=== PATIENT | male | born 1995 | race Caucasian/White ===

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

== ENCOUNTER 2017-05-04 08:00 | Outpatient (CLI) | payer MEDICAID ==
[2017-05-04 17:45] LABS: BASOPHILS % (AUTO) 0.5 %; EOSINOPHILS # (AUTO) 0.1 10^3/uL (0.0-0.7); EOSINOPHILS % (AUTO) 0.8 %; HCT - HEMATOCRIT 46.6 % (42.0-52.0); HGB - HEMOGLOBIN 15.8 g/dL (14.0-18.0); LYMPHOCYTES # (AUTO) 1.9 10^3/uL (1.5-3.5); LYMPHOCYTES % (AUTO) 27.1 %; MEAN CORPUSCULAR HEMOGLOBIN 31.3 pg (27.0-31.0); MEAN CORPUSCULAR HGB CONC 33.8 g/dL (32.0-36.0); MEAN CORPUSCULAR VOLUME 92.5 fL (80.0-94.0); MEAN PLATELET VOLUME 7.5 fL (7.4-11.4); MONOCYTES # (AUTO) 0.5 10^3/uL (0.0-1.0); MONOCYTES % (AUTO) 6.7 %; NEUTROPHILS # (AUTO) 4.6 10^3/uL (1.5-6.6); NEUTROPHILS % (AUTO) 64.9 %; RED BLOOD COUNT 5.04 10^6/uL (4.70-6.10); RED CELL DISTRIBUTION WIDTH 13.8 % (12.0-15.0); UNCORRECTED WHITE BLOOD COUNT 7.1 x10^3/uL; WHITE BLOOD COUNT 7.1 x10^3/uL (4.8-10.8)
[2017-05-04 18:24] LABS: ALBUMIN/GLOBULIN RATIO 1.5 (1.0-2.2); BILIRUBIN,TOTAL 0.4 mg/dL (0.2-1.0); BUN - BLOOD UREA NITROGEN 13 mg/dL (6-20); CARBON DIOXIDE - CO2 26 mmol/L (21-32); CHLORIDE 97 mmol/L (101-111); CHOL/HDL RATIO 5.2 (<5.0); CHOLESTEROL 222 mg/dL; CREATININE 0.9 mg/dL (0.6-1.2); GFR - MDRD 108 (>89); GLUCOSE 92 mg/dL (70-100); HDL CHOLESTEROL 43 mg/dL; POTASSIUM 4.2 mmol/L (3.5-5.0); SODIUM 132 mmol/L (135-145); TOTAL PROTEIN 7.3 g/dL (6.7-8.2); TRIGLYCERIDES 252 mg/dL; VLDL CHOLESTEROL 50 mg/dL
[2017-05-04 18:26] LABS: THYROID STIMULATING HORMONE 3.07 uIU/mL (0.34-5.60)
[2017-05-04 18:55] LABS: HEMOGLOBIN A1C 0.52 g/dL
== END 2017-05-04 08:01 | disposition home or self-care (01) ==
LOC: LAB.R 08:00
PROVIDERS: ATTEND Pediatrics
DX: Q90.9 Down syndrome, unspecified (principal); E03.9 Hypothyroidism, unspecified
CPT/HCPCS: 80053; 80061; 83036; 84439; 84443; 85025

== ENCOUNTER 2017-12-08 14:56 | Outpatient (CLI) | payer MEDICAID ==
[2017-12-08 19:09] LABS: THYROID STIMULATING HORMONE 1.42 uIU/mL (0.34-5.60)
[2017-12-08 19:11] LABS: FREE T4 (FREE THYROXINE) 0.66 ng/dL (0.58-1.64)
== END 2017-12-08 14:57 | disposition home or self-care (01) ==
LOC: LAB.F 14:56
PROVIDERS: ATTEND Nurse Practitioner Family
DX: Z79.899 Other long term (current) drug therapy (principal); E03.9 Hypothyroidism, unspecified
CPT/HCPCS: 36415; 80175; 80183; 81599; 84439; 84443

== ENCOUNTER 2020-03-12 15:41 | Outpatient (CLI) | payer MEDICAID ==
[2020-03-12 19:54] LABS: BASOPHILS # (AUTO) 0.1 10^3/uL (0.0-0.1); BASOPHILS % (AUTO) 0.7 %; EOSINOPHILS # (AUTO) 0.1 10^3/uL (0.0-0.7); EOSINOPHILS % (AUTO) 1.5 %; LYMPHOCYTES # (AUTO) 2.5 10^3/uL (1.5-3.5); LYMPHOCYTES % (AUTO) 33.3 %; MEAN CORPUSCULAR HEMOGLOBIN 31.6 pg (27.0-31.0); MEAN CORPUSCULAR HGB CONC 33.7 g/dL (32.0-36.0); MEAN CORPUSCULAR VOLUME 93.7 fL (80.0-94.0); MEAN PLATELET VOLUME 9.8 fL (7.4-11.4); MONOCYTES # (AUTO) 0.5 10^3/uL (0.0-1.0); NEUTROPHILS # (AUTO) 4.3 10^3/uL (1.5-6.6); NEUTROPHILS % (AUTO) 56.7 %; PLT - PLATELET COUNT 358 10^3/uL (130-450); RED BLOOD COUNT 5.07 10^6/uL (4.70-6.10); RED CELL DISTRIBUTION WIDTH 13.9 % (12.0-15.0); WHITE BLOOD COUNT 7.5 x10^3/uL (4.8-10.8)
[2020-03-12 20:12] LABS: ALBUMIN 4.3 g/dL (3.2-5.5); ALBUMIN/GLOBULIN RATIO 1.3 (1.0-2.2); BILIRUBIN,TOTAL 0.4 mg/dL (0.2-1.0); CALCIUM 9.6 mg/dL (8.5-10.3); TOTAL PROTEIN 7.7 g/dL (6.7-8.2)
[2020-03-12 20:28] LABS: THYROID STIMULATING HORMONE < 0.08 uIU/mL (0.34-5.60)
[2020-03-12 20:30] LABS: FREE T4 (FREE THYROXINE) 1.21 ng/dL (0.58-1.64)
== END 2020-03-12 15:42 | disposition home or self-care (01) ==
LOC: LAB.S 15:41
PROVIDERS: ATTEND Registered Nurse
DX: E66.9 Obesity, unspecified (principal); G47.33 Obstructive sleep apnea (adult) (pediatric); Q90.9 Down syndrome, unspecified; E03.9 Hypothyroidism, unspecified; I10 Essential (primary) hypertension
CPT/HCPCS: 36415; 80053; 80175; 81599; 84439; 84443; 85025

== ENCOUNTER 2021-05-23 09:34 | Outpatient (CLI) | payer MEDICAID ==
[2021-05-23 15:12] LABS: BASOPHILS # (AUTO) 0.1 10^3/uL (0.0-0.1); BASOPHILS % (AUTO) 0.8 %; EOSINOPHILS # (AUTO) 0.1 10^3/uL (0.0-0.7); EOSINOPHILS % (AUTO) 1.3 %; HCT - HEMATOCRIT 48.7 % (42.0-52.0); HGB - HEMOGLOBIN 16.5 g/dL (14.0-18.0); LYMPHOCYTES # (AUTO) 1.6 10^3/uL (1.5-3.5); LYMPHOCYTES % (AUTO) 24.4 %; MEAN CORPUSCULAR HEMOGLOBIN 31.7 pg (27.0-31.0); MEAN CORPUSCULAR HGB CONC 33.9 g/dL (32.0-36.0); MEAN CORPUSCULAR VOLUME 93.7 fL (80.0-94.0); MEAN PLATELET VOLUME 9.9 fL (7.4-11.4); MONOCYTES # (AUTO) 0.6 10^3/uL (0.0-1.0); MONOCYTES % (AUTO) 8.7 %; NEUTROPHILS # (AUTO) 4.1 10^3/uL (1.5-6.6); NEUTROPHILS % (AUTO) 64.3 %; PLT - PLATELET COUNT 301 10^3/uL (130-450); RED CELL DISTRIBUTION WIDTH 13.6 % (12.0-15.0); WHITE BLOOD COUNT 6.4 x10^3/uL (4.8-10.8)
[2021-05-23 15:30] LABS: ALBUMIN 4.2 g/dL (3.2-5.5); ALBUMIN/GLOBULIN RATIO 1.3 (1.0-2.2); BILIRUBIN,TOTAL 0.9 mg/dL (0.2-1.0); CALCIUM 9.2 mg/dL (8.5-10.3); CREATININE 0.9 mg/dL (0.6-1.2); POTASSIUM 4.2 mmol/L (3.5-5.0); TOTAL PROTEIN 7.4 g/dL (6.7-8.2)
[2021-05-23 17:03] LABS: THYROID STIMULATING HORMONE 0.01 uIU/mL (0.34-5.60)
[2021-05-23 17:34] LABS: FREE T4 (FREE THYROXINE) 1.75 ng/dL (0.58-1.64)
== END 2021-05-23 09:35 | disposition home or self-care (01) ==
LOC: LAB.S 09:34
PROVIDERS: ATTEND Registered Nurse
DX: I10 Essential (primary) hypertension (principal); E03.9 Hypothyroidism, unspecified
CPT/HCPCS: 36415; 80053; 80175; 84439; 84443; 85025

== ENCOUNTER 2021-06-22 15:26 | Outpatient (CLI) | payer MEDICAID ==
[2021-06-25 10:47] LABS: IMMUNOGLOBULIN A 265 mg/dL (47-310); IMMUNOGLOBULIN G 974 mg/dL (600-1640); IMMUNOGLOBULIN M 68 mg/dL (50-300)
== END 2021-06-22 15:27 | disposition home or self-care (01) ==
LOC: LAB.S 15:26
PROVIDERS: ATTEND Registered Nurse
DX: Q90.9 Down syndrome, unspecified (principal)
CPT/HCPCS: 82784; 83516

== ENCOUNTER 2022-01-11 14:41 | Emergency (ER) | payer MEDICAID ==
--- NOTE | 2022-01-11 15:57 | XRAY Report ---
PROCEDURE: Knee 4 View RT INDICATIONS: Trauma TECHNIQUE: 4 views of the right knee(s) were acquired. COMPARISON: None. FINDINGS: Bones: No fractures or dislocations. No suspicious bony lesions. Soft tissues: No joint effusion. No suspicious soft tissue calcifications. IMPRESSION: Normal right knee radiographs Reviewed by: Gerald Gongora MD on 01/11/2022 2:56 PM AKDT Approved by: Gerald Gongora MD on 01/11/2022 2:56 PM AKDT Station ID: [id number]
--- NOTE | 2022-01-11 15:58 | ED Physician Documentation ---
PD HPI LOWER EXT INJURY - Stated complaint Stated Complaint: FALL,KNEE PX - Chief complaint Chief Complaint: Trauma Ext - History obtained from History obtained from: Patient - History of Present Illness PD HPI LOW EXT INJURY LOCATION: Right, Knee Type of injury: Fall Where injury occurred: Park Timing - onset: How many days ago (2-3) Timing - duration: Days (2-3) Pain level max: 5 Pain level now: 3 Improved by: Rest Worsened by: Moving, Palpating Associated symptoms: No: Weakness, Numbness, Tingling, Swelling Contributing factors: No: Anticoagulated - Additional information Additional information: Patient is a 26-year-old male with a history of Down syndrome who presents to the emergency department with right knee pain after a fall at the park. This occurred 2 to 3 days ago. Worse with walking, better with rest. Review of Systems Constitutional: denies: Fever, Chills Respiratory: denies: Cough GI: denies: Nausea, Vomiting, Diarrhea Skin: denies: Rash Musculoskeletal: denies: Neck pain, Back pain Neurologic: denies: Headache PD PAST MEDICAL HISTORY - Past Medical History Past Medical History: Yes Other Past Medical History: Down syndrome - Past Surgical History Past Surgical History: No - Present Medications Home Medications: Ambulatory Orders Medication Instructions Recorded Confirmed Levothyroxine Sodium [Levoxyl] 175 mcg PO DAILY 04/25/13 01/01/15 Azithromycin [Zithromax] 250 mg PO DAILY #4 tablet 01/01/15 OXcarbazepine [Trileptal] 900 mg PO BID 01/01/15 01/01/15 - Allergies Allergies/Adverse Reactions: Allergies Allergy/AdvReac Type Severity Reaction Status Date / Time No Known Drug Allergies Allergy Verified 01/11/22 14:51 - Living Situation Living Situation: reports: With family Living Arrangement: reports: At home - Social History Does the pt smoke?: No Smoking Status: Never smoker Does the pt drink ETOH?: No Does the pt have substance abuse?: No - Immunizations Immunizations are current?: Yes - POLST Patient has POLST: No PD ED PE NORMAL - Vitals Vital signs reviewed: Yes - General General: Alert and oriented X 3, No acute distress - Derm Derm: Warm and dry - Extremities Extremities: Other (Full range of motion of the right knee without pain. No bony tenderness. No effusion.) - Neuro Neuro: Alert and oriented X 3 - Psych Psych: Normal mood, Normal affect Results - Vitals Vitals: Vital Signs - 24 hr 01/11/22 01/11/22 14:51 16:25 Temperature 36.5 C 36.5 C Heart Rate 84 86 Respiratory 16 16 Rate Blood Pressure 117/52 L 118/60 O2 Saturation 96 98 Oxygen O2 Source Room air - Rads (name of study) Right knee x-ray Radiology: Final report received, EMP read contemporaneously, See rad report PD MEDICAL DECISION MAKING - ED course Complexity details: reviewed results, re-evaluated patient, considered differential, d/w patient, d/w family ED course: No acute findings on x-ray of the knee. Appears to be a knee contusion/sprain. Wrapped in Nura bandage for comfort. Ambulating well. Will utilize Motrin and Tylenol as needed for pain. Neurovascular intact. Patient and family counseled regarding signs and symptoms for which I believe and urgent re-evaluation would be necessary. Patient with good understanding of and agreement to plan and is comfortable going home at this time This document was made in part using voice recognition software. While efforts are made to proofread this document, sound alike and grammatical errors may occur. Departure - Departure Disposition: 01 Home, Self Care Clinical Impression: Contusion of knee, right Qualifiers: Encounter type: initial encounter Qualified Code(s): S80.01XA - Contusion of right knee, initial encounter Condition: Good Instructions: ED Knee Pain UKO, ED Sprain Knee Follow-Up: Tegan Mckeon ARNP [Primary Care Provider] - Within 1 week Comments: Your x-ray does not show any acute abnormalities today. Please follow-up with your doctor as needed for further care. You can use the Nura bandage as needed for comfort. Motrin or Tylenol as needed for pain. Discharge Date/Time: 01/11/22 16:29
[2022-01-11 16:26] VITALS: BP 118/60
== END 2022-01-11 16:29 | disposition home or self-care (01) ==
LOC: ED 14:41
DX: S80.01XA Contusion of right knee, initial encounter (principal); W18.30XA Fall on same level, unspecified, initial encounter; Y92.830 Public park as the place of occurrence of the external cause
CPT/HCPCS: 99282; 99283

== ENCOUNTER 2022-03-24 16:10 | Outpatient (CLI) | payer MEDICAID | END 2022-03-24 16:11 | disposition EMS.NT | LOC: EMS 16:10 | DX: R56.9 Unspecified convulsions (principal) ==

== ENCOUNTER 2022-03-24 18:50 | Outpatient (CLI) | payer MEDICAID ==
--- NOTE | 2022-03-25 11:21 | XRAY Report ---
PROCEDURE: Finger(s) RT INDICATIONS: SPRAIN OF RIGHT THUMB TECHNIQUE: AP hand, 2 views of the right hand first digit acquired. COMPARISON: None. FINDINGS: Bones: Oblique linear lucency present at the base of the first digit distal phalanx, likely the ulnar aspect, without definite cortical disruption visualized. No suspicious bony lesions. Soft tissues: No suspicious soft tissue calcifications. IMPRESSION: A linear lucency at the base of the first digit distal phalanx could indicate an acute nondisplaced f racture, however no definite cortical disruption is identified. Correlation with point tenderness in this area may be helpful. If symptoms persist, follow-up radiographs and/or CT may be helpful for fur ther evaluation. Reviewed by: Arpan Mendenhall MD on 03/25/2022 11:20 AM PDT Approved by: Arpan Mendenhall MD on 03/25/2022 11:20 AM PDT Station ID: [id number]
== END 2022-03-24 18:51 | disposition home or self-care (01) ==
LOC: DI.S 18:50
PROVIDERS: ATTEND Emergency Medicine
DX: S63.621A Sprain of interphalangeal joint of right thumb, initial encounter (principal)

== ENCOUNTER 2022-04-30 14:19 | Outpatient (CLI) | payer MEDICAID ==
[2022-04-30 20:23] LABS: THYROID STIMULATING HORMONE 0.23 uIU/mL (0.34-5.60)
[2022-04-30 21:03] LABS: FREE T4 (FREE THYROXINE) 1.04 ng/dL (0.58-1.64)
== END 2022-04-30 14:20 | disposition home or self-care (01) ==
LOC: LAB.S 14:19
PROVIDERS: ATTEND Registered Nurse
DX: E03.9 Hypothyroidism, unspecified (principal)
CPT/HCPCS: 36415; 84439; 84443

== ENCOUNTER 2023-07-01 14:48 | Outpatient (CLI) | payer MEDICAID ==
[2023-07-01 19:47] LABS: BASOPHILS % (AUTO) 0.6 %; EOSINOPHILS # (AUTO) 0.1 10^3/uL (0.0-0.7); EOSINOPHILS % (AUTO) 1.3 %; HCT - HEMATOCRIT 46.9 % (42.0-52.0); HGB - HEMOGLOBIN 15.2 g/dL (14.0-18.0); LYMPHOCYTES # (AUTO) 1.6 10^3/uL (1.5-3.5); LYMPHOCYTES % (AUTO) 24.8 %; MEAN CORPUSCULAR HEMOGLOBIN 31.1 pg (27.0-31.0); MEAN CORPUSCULAR HGB CONC 32.4 g/dL (32.0-36.0); MEAN CORPUSCULAR VOLUME 96.1 fL (80.0-94.0); MEAN PLATELET VOLUME 9.7 fL (7.4-11.4); MONOCYTES # (AUTO) 0.4 10^3/uL (0.0-1.0); NEUTROPHILS # (AUTO) 4.2 10^3/uL (1.5-6.6); NEUTROPHILS % (AUTO) 66.5 %; PLT - PLATELET COUNT 324 10^3/uL (130-450); RED BLOOD COUNT 4.88 10^6/uL (4.70-6.10); RED CELL DISTRIBUTION WIDTH 13.4 % (12.0-15.0); WHITE BLOOD COUNT 6.3 x10^3/uL (4.8-10.8)
[2023-07-01 20:06] LABS: ALBUMIN 4.2 g/dL (3.2-5.5); ALBUMIN/GLOBULIN RATIO 1.6 (1.0-2.2); BILIRUBIN,TOTAL 0.3 mg/dL (0.2-1.0); CALCIUM 9.4 mg/dL (8.5-10.3); CREATININE 0.9 mg/dL (0.6-1.3); POTASSIUM 3.6 mmol/L (3.5-4.5); TOTAL PROTEIN 6.8 g/dL (6.4-8.9)
[2023-07-01 20:15] LABS: THYROID STIMULATING HORMONE 1.68 uIU/mL (0.34-5.60)
== END 2023-07-01 14:49 | disposition home or self-care (01) ==
LOC: LAB.S 14:48
PROVIDERS: ATTEND Registered Nurse
DX: E03.9 Hypothyroidism, unspecified (principal); Z79.899 Other long term (current) drug therapy
CPT/HCPCS: 36415; 80053; 84443; 85025

== ENCOUNTER 2023-09-26 12:59 | Outpatient (CLI) | payer MEDICAID | END 2023-09-26 13:00 | disposition home or self-care (01) | LOC: NS 12:59 | PROVIDERS: ATTEND Registered Nurse | DX: Z71.3 Dietary counseling and surveillance (principal); E03.9 Hypothyroidism, unspecified; R73.01 Impaired fasting glucose; E66.9 Obesity, unspecified; Z68.42 Body mass index [BMI] 45.0-49.9, adult | CPT/HCPCS: 97802 ==

== ENCOUNTER 2023-10-12 15:43 | Outpatient (CLI) | payer MEDICAID ==
--- NOTE | 2023-10-12 16:39 | Sleep Patient Instructions ---
Sleep Center Visit Summary - Patient Visit Information Reason for Visit: Initial consult for evaluation of sleep disordered breathing and other sleep issues. - Patient Instructions Instructions Attached: Sleep Study Home Monitor Additional Instructions: You will be completing a sleep study, either an in-lab polysomnography (PSG) or home sleep study (HST). You will follow-up in the sleep care office after the sleep study is completed to hear the results and talk about therapy, if needed. You will be called by our office staff to schedule this appointment, but you may contact us with any questions. - Clinic Information Contact: [facility] [address] [place] [address] [email or web address] T: [phone]
--- NOTE | 2023-10-12 16:43 | SLEEP CARE CONSULTATION ---
Information from patient questionnaire entered by Meredith Tapia. I have reviewed and concur with the information entered by Meredith Tapia. This document represents the service I personally performed and the decisions made by me, Eda Merrill ARNP. History of Present Illness Service Date and Time: 10/12/2023 1543 Reason for Visit: New patient Accompanied by: Jaylin Kang Chief Complaint: reports: Unrefreshed sleep, Snoring, Other (UPDATE SUPPLIES) Date of Onset: SINCE 18YEARS OLD Usual bedtime: 8653-8090 Time it takes to fall asleep: 30MINS Snores at night: Yes Observed to quit breathing while asleep: Yes Number of times waking at night: 1 Reasons for waking at night: reports: Bathroom. denies: Choking, Gasping for air Toss, Turn, or Twitch while sleeping: Yes Recalls having dreams: No Usually gets out of bed at: 1218-0737 Feels refreshed in the morning: No Morning headache: No Sleepy or fatigued during the day: Yes Takes day naps: Yes Dreams during day naps: No Prior sleep studies: Yes Additional HPI information: I had the pleasure of seeing ARNAV KATHLEENGERI today regarding the possibility of him having a sleep disorder. His current complaints are snoring and unrefreshed sleep. He is accompanied by his grandmother, Jaylin, because he has Downs Syndrome and she helps with history. He has had a diagnosis since he was around 18 years old, had been having seizures and was placed on a CPAP machine. He stopped using it around the time of the recall of his machine. He is needing to restart therapy. He has gained weight since his last sleep study. He has a history of epilepsy that is mainly controlled with medications. - Parasomnia Symptoms Ever been unable to move upon waking from sleep: No Walks in sleep: No Talks in sleep: No Ever acted out dreams in sleep: No Ever felt weak in the knees when startled or emotional: No Bothered by creepy, crawly, restless sensations in legs: No Problems with memory or concentration: No (don't know) Subjective Initial [place] Sleepiness Scale score: 12 (10/12/23) Past Medical History Past Medical History: reports: Hypothyroidism, Other (EPILEPSY; Downs Syndrome) Social History The patient's occupation is a [employer]. Patient is Single and lives in [place]. Have you smoked in the past 12 months: No Alcohol use: No Caffeine use: Yes Caffeine amount and frequency: 1 CAN OF SODA 1 WEEK Family History Family history of sleep disordered breathing: No (UNKNOWN) Allergies and Home Medications Known drug allergies: No Drug allergies reviewed: Yes Home medication list reviewed: Yes (as listed) Allergy and home medication list: Allergies No Known Drug Allergies Allergy (Verified 10/10/23 10:03) Home Medications Medication Instructions Recorded Confirmed Last Taken Type Cholecalciferol [Vitamin D3] See Rx Instructions .ROUTE .COMPLEX 10/12/23 10/12/23 Unknown History Levetiracetam [Keppra] See Rx Instructions .ROUTE .COMPLEX 10/12/23 10/12/23 Unknown History Levothyroxine Sodium [Euthyrox] See Rx Instructions .ROUTE .COMPLEX 10/12/23 10/12/23 Unknown History Multivitamin See Rx Instructions .ROUTE .COMPLEX 10/12/23 10/12/23 Unknown History [place]-3S/Dha/Epa/Fish Oil [Fish See Rx Instructions .ROUTE .COMPLEX 10/12/23 10/12/23 Unknown History Oil 1,200 mg Softgel] lamoTRIgine [LaMICtal] See Rx Instructions .ROUTE .COMPLEX 10/12/23 10/12/23 Unknown History Review of Systems Weight gain over past 5 years: 10 Cardiovascular: denies: high blood pressure Respiratory: reports: shortness of breath Neurological: reports: headaches, seizure, gait or balance problems Ear/Nose/Throat: denies: tonsillectomy Endocrine: reports: thyroid disease, sluggishness Musculoskeletal: reports: mobility problems (avoid stairs-due to seizures) Physical Exam Vital signs obtained and entered by: MEREDITH Lopes MA Blood Pressure: 133/88 (LEFT ARM) Cuff size: regular Heart Rate: 98 O2 Saturation: 96 Height: 4 ft 11 in Weight: 236 lb 6.4 oz Body Mass Index: 47.7 BMI Classification: Morbidly Obese Neck circumference: 17.5 Mouth and throat: narrow oropharynx Soft palate: long Hard palate: normal Uvula: edematous Uvula visualization: 0% Mallampati Class IV Tongue: enlarged in size with teeth ruffin on lateral edges Tonsils: 2+ Neck: normal w/o lymphadenopathy or thyromegaly Heart: regular rate and rhythm Lungs: clear bilaterally Impression and Plan 1. Suspected Obstructive Sleep Apnea-Hypopnea Syndrome, as previously diagnosed and suggested by a history of loud and irregular snoring, observed cessation of breath while asleep, unrefreshed sleep and cognitive impairment. Narrow oropharynx and obesity are common predisposing factors for obstructive sleep apnea-hypopnea syndrome. I recommend proceeding to polysomnography to confirm the diagnosis and to assess severity. If the patient has significant sleep disordered breathing, a manual CPAP titration study will also be performed to find the optimal treatment pressure. I informed the patient of what the sleep studies involve and after some discussion, obtained agreement to proceed from grandmotherJaylin. The pathophysiology of obstructive sleep apnea-hypopnea syndrome was discussed with the patient and health risks of cardiovascular and cerebrovascular disease if not treated. Risks of drowsy driving discussed in detail and patient advised to avoid long distance driving and to mandrel puller at the first sign of drowsiness. Patient agreed to plan. * Schedule polysomnography. * Avoid long distance driving or driving when feeling sleepy. * Avoid alcohol, sedative and muscle relaxant around bedtime. * Attempt to lose weight. * Review instructions provided by trained office staff on how to prepare for the sleep study. * Return for follow-up after sleep study completed. Counseling Topics: Weight loss health impact Follow up with Sleep Care in: other (after sleep study) Plan: PSG/HST Visit Type: In Office Time Spent with Patient (minutes): 30 Provider Statement: I spent 100% of the Face to Face Visit with the patient with greater than 50% spent counseling the patient and coordination of care.
[2023-10-12 16:45] VITALS: BP 133/88; O2SAT 96
== END 2023-10-12 15:44 | disposition home or self-care (01) ==
LOC: SC 15:43
PROVIDERS: ATTEND Nurse Practitioner Family
DX: R06.83 Snoring (principal); G47.8 Other sleep disorders; Q90.9 Down syndrome, unspecified; G47.10 Hypersomnia, unspecified
CPT/HCPCS: 99203; 99212

== ENCOUNTER 2023-11-21 13:20 | Outpatient (CLI) | payer MEDICAID | END 2023-11-21 13:21 | disposition home or self-care (01) | LOC: SC 13:20 | PROVIDERS: ATTEND Nurse Practitioner Family | DX: G47.33 Obstructive sleep apnea (adult) (pediatric) (principal) | CPT/HCPCS: 95806 ==

== ENCOUNTER 2024-02-17 20:30 | Outpatient (CLI) | payer MEDICAID | END 2024-02-17 20:31 | disposition home or self-care (01) | LOC: SC 20:30 | PROVIDERS: ATTEND Nurse Practitioner Family | DX: G47.33 Obstructive sleep apnea (adult) (pediatric) (principal); E66.01 Morbid (severe) obesity due to excess calories; Z68.42 Body mass index [BMI] 45.0-49.9, adult | CPT/HCPCS: 95810 ==

== ENCOUNTER 2024-03-02 15:59 | Outpatient (CLI) | payer MEDICAID ==
--- NOTE | 2024-03-02 16:38 | Sleep Patient Instructions ---
Sleep Center Visit Summary - Patient Visit Information Reason for Visit: Sleep study follow-up - Patient Instructions Additional Instructions: You are being started on CPAP therapy with pressure setting at 4-15 cmH2O. You will need to call the sleep care office to set up your follow up once you have your CPAP machine to check compliance and response to therapy at that time. You may call the office with any concerns about pressure feeling too low or too much for adjustment, if needed. You should contact DME supplier for any questions or concerns about mask or equipment. Please call office to schedule a follow up appointment in the sleep care office one month after obtaining new device. - Clinic Information Contact: [facility] [address] [place] [address] [email or web address] T: [phone]
--- NOTE | 2024-03-02 16:43 | SLEEP CARE CONSULTATION ---
Information from patient questionnaire entered by Meredith Tapia. I have reviewed and concur with the information entered by Meredith Tapia. This document represents the service I personally performed and the decisions made by , Eda Merrill ARNP. History of Present Illness Service Date and Time: 03/02/2024 1559 Accompanied by: Sanjeev Mosqueda Initial [place] Sleepiness Scale score: 12 (10/12/23) Current [place] Sleepiness Scale score: 15 (03/02/24) Additional HPI information: ARNAV VAIL returns with mother (guardian) for follow up and results of the recently performed polysomnography. The sleep study done on 02/17/2024 showed moderate obstructive sleep apnea with an average AHI of 23.2 and ceci oxygen saturation of 80%. I explained the pathophysiology behind obstructive sleep apnea. We then spent quite a bit of time discussing different treatment options. For mild obstructive sleep apnea, surgery and oral appliance are alternatives to nasal CPAP therapy but in moderate or severe cases, nasal CPAP is the most effective and reliable treatment. I reviewed the impact of weight changes on sleep apnea and strongly recommended losing weight. After some discussion, the patient's mother opted to go with the nasal CPAP therapy. Nasal autoCPAP set at 4-15 cmH20 will be ordered with rationale explained. A manual titration study will be ordered if unable to find optimal pressure with office adjustments. I explained how CPAP machine works and what to expect when using the machine. Using CPAP every night in order to get used to it was emphasized. Patient advised to put CPAP mask on before getting into bed so as not to fall asleep without CPAP. The patient was instructed to call the CPAP supplier to discuss any mechanical problem that may occur. If the mask given is uncomfortable or is difficult to keep on through the night even with adjustment, contact the CPAP supplier as many will replace with another mask style if notified before 30 days. If snoring or perceives is not getting enough air or too much air from the machine, notify this office. Patient does not drink alcohol. Patient does not drive. Sleep Study - Results Type of Sleep Study: Polysomnography (COMPLETED 02/17/24 MODERATE) Prior sleep studies: Yes Polysomnography/Home Sleep Study results: IMPRESSION: The quality of the study is good. The patient had reduced sleep efficiency due to sleep onset insomnia and tabular typist awakening. The sleep architecture was abnormal for sleep fragmentation and reduced amount of time spent in slow wave sleep (N3). Respiratory monitoring showed moderate obstructive sleep apneahypopnea (AHI = 23.2) associated with frequent arousals, oxyhemoglobin desaturation and mild hypoxia (ceci oxygen saturation of 80%). The patient did not sleep supine during this study. Snore was light in intensity. There was no significant periodic leg movement of sleep. Cardiac rhythm was normal sinus rhythm without significant arrhythmia. No abnormal behavior (parasomnia) observed during the night. Allergies and Home Medications Known drug allergies: No Drug allergies reviewed: Yes Home medication list reviewed: Yes (no changes) Allergy and home medication list: Allergies No Known Drug Allergies Allergy (Verified 03/02/24 16:01) Review of Systems Review of systems same as previous: Yes (NO CHANGE) Physical Exam Vital signs obtained and entered by: MEREDITH Lopes MA Blood Pressure: 137/61 (LEFT ARM) Cuff size: regular Heart Rate: 75 O2 Saturation: 97 Height: 4 ft 11 in Weight: 237 lb 12.8 oz Body Mass Index: 48.0 BMI Classification: Morbidly Obese Impression and Plan 1. Obstructive Sleep Apnea-Hypopnea Syndrome, moderate, with lowest oxygen saturation of 80%. Obviously this is the cause of the patients symptoms of unrefreshed sleep, and excessive daytime sleepiness. Positive pressure therapy could benefit epilepsy. As mentioned above, the patient will be started on nasal autoCPAP therapy with pressure set at 4-15 cmH2O. A manual titration study will be completed if unable to find optimal treatment pressure with office adjustments. Compliance guidelines also reviewed. A copy of compliance guidelines will be given for reference at check out. 2. Hypoxemia, mild, with a ceci oxygen saturation of 80% and 5.1 minutes spent under 90%. The baseline oxygen saturation was normal with an average oxygen saturation of 93%. 3. Obesity, unspecified. Currently patients BMI is 48. Obesity increases the risk of apnea, CPAP pressure requirements and overall health risks especially cardiovascular and diabetes. Thus patient is advised to lose weight. * Nasal auto CPAP therapy, pressure at 4-15 cmH2O. * Attempt to lose weight. * Avoid alcohol consumption near bedtime. * Avoid supine sleep until using CPAP. * The patient is again cautioned about driving until sleepiness completely resolves. * Return one month after CPAP obtained. I will assess response to therapy and compliance at that time. Counseling Topics: Weight loss health impact Prescriptions: Auto CPAP Plan: start cpap and compliance follow up Visit Type: In Office Time Spent with Patient (minutes): 23 Provider Statement: I spent 100% of the Face to Face Visit with the patient with greater than 50% spent counseling the patient and coordination of care.
[2024-03-02 16:44] VITALS: BP 137/61; O2SAT 97
== END 2024-03-02 16:00 | disposition home or self-care (01) ==
LOC: SC 15:59
PROVIDERS: ATTEND Nurse Practitioner Family
DX: G47.33 Obstructive sleep apnea (adult) (pediatric) (principal); R09.02 Hypoxemia; E66.01 Morbid (severe) obesity due to excess calories; Z68.42 Body mass index [BMI] 45.0-49.9, adult
CPT/HCPCS: 99212; 99213